=== PATIENT | male | born 1955 | race Caucasian/White ===

== ENCOUNTER 2017-09-29 09:40 | Emergency (ER) | payer OTHER ==
--- NOTE | 2017-09-29 10:17 | EDM.PDOC ---
ED HPI GENERAL MEDICAL PROBLEM - General Chief Complaint: Upper Extremity Injury/Pain Stated Complaint: CRUSHED IN TRAP SHOOTING MACHINE Time Seen by Provider: 09/29/17 10:00 Source of Information: Reports: Patient History Limitations: Reports: No Limitations - History of Present Illness INITIAL COMMENTS - FREE TEXT/NARRATIVE: Sonny is a 61 year old male who presents to the ED with c/o a injury to his left third finger. He reports they were working on a trap shooting machine and couldn't get it to work. He says all of a sudden it started to work and a lever came back and crushed his left third finger. He reports instant pain and a large amount of blood loss. He reports his finger his numb. He denies any pain. Bleeding is controlled with pressure to the area. Onset: Today, Sudden Onset Date: 09/29/17 Onset Time: 09:40 Duration: Constant Location: Reports: Upper Extremity, Left Improves with: Reports: Other (pressure) Associated Symptoms: Reports: No Other Symptoms - Related Data Allergies Allergy/AdvReac Type Severity Reaction Status Date / Time No Known Allergies Allergy Verified 09/29/17 09:47 Home Meds: Home Meds Citalopram [Citalopram HBr] 09/29/17 [History] Diclofenac Sodium 09/29/17 [History] Metoprolol Succinate 09/29/17 [History] Zolpidem [Ambien] 5 mg PO PRN 09/29/17 [History] atorvaSTATin [Lipitor] 09/29/17 [History] Past Medical History Cardiovascular History: Reports: High Cholesterol, Hypertension Social & Family History - Family History Family Medical History: Noncontributory - Tobacco Use Smoking Status *Q: Never Smoker - Recreational Drug Use Recreational Drug Use: No Review of Systems - Review of Systems Review Of Systems: ROS reveals no pertinent complaints other than HPI. ED EXAM, GENERAL - Physical Exam Exam: See Below Exam Limited By: No Limitations General Appearance: Alert, WD/WN, No Apparent Distress Peripheral Pulses: 2+: Radial (L) Extremities: Normal Range of Motion, Other (crush injury to left distal 3rd phalynx, no foreign objects, bleeding controlled with pressure dressing) Neurological: Alert, Oriented, CN II-XII Intact, Normal Cognition, Normal Gait, Normal Reflexes, No Motor/Sensory Deficits Psychiatric: Normal Affect, Normal Mood Skin Exam: Other (crush injury to 3rd left distal phalynx) ED TRAUMA EXTREMITY PROCEDURES - Laceration/Wound Repair Left Midline Distal Finger Lac/Wound Length In cm: 5 Appearance: Subcutaneous, Clean Distal NVT: Other (numb) Anesthetic Type: Digital Local Anesthesia - Lidocaine (Xylocaine): 1% Plain Local Anesthetic Volume: 5cc Skin Prep: Chlorhexidine (Hibiciens), Providone-Iodine (Betadine), Saline Saline Irrigation (cc's): 30 Exploration/Debridement/Repair: Wound Explored, Minimal Debridement Closed With: Sutures Suture Size: 4-0 # of Sutures: 12 Suture Type: Prolene Course - Vital Signs Last Recorded V/S: Last Vital Signs Temp 98 F 09/29/17 09:43 Pulse 66 09/29/17 09:43 Resp 18 09/29/17 09:43 BP 148/95 H 09/29/17 09:43 Pulse Ox 95 09/29/17 09:43 - Orders/Labs/Meds Meds: Medications Discontinued Medications Generic Name Dose Route Start Last Admin Trade Name Rey PRN Reason Stop Dose Admin Diphtheria/Tetanus/Acell Pertussis 0.5 ml 09/29/17 11:29 09/29/17 12:03 Adacel IM 09/29/17 11:30 0.5 ml .ONCE ONE Administration Lidocaine HCl Confirm 09/29/17 10:20 09/29/17 11:52 Xylocaine 1% Administered 09/29/17 10:21 20 ml Dose Administration 20 ml .ROUTE .STK-MED ONE Neomycin/Polymyxin/Bacitracin Confirm 09/29/17 12:00 09/29/17 12:17 Triple Antibiotic Oint Administered 09/29/17 12:01 1 each Dose Administration 1 each .ROUTE .STK-MED ONE Neomycin/Polymyxin/Bacitracin Confirm 09/29/17 12:00 09/29/17 12:17 Triple Antibiotic Oint Administered 09/29/17 12:01 Not Given Dose 1 each .ROUTE .STK-MED ONE Departure - Departure Time of Disposition: 12:29 Disposition: Home, Self-Care 01 Condition: Good Clinical Impression: Crushing injury of finger of left hand Fracture of distal phalanx of finger, open Qualifiers: Encounter type: initial encounter Finger: middle finger Fracture alignment: nondisplaced Laterality: left Qualified Code(s): S62.663B - Nondisplaced fracture of distal phalanx of left middle finger, initial encounter for open fracture Laceration of finger of left hand with damage to nail Qualifiers: Encounter type: initial encounter Finger: middle finger Foreign body presence: without foreign body Qualified Code(s): S61.313A - Laceration without foreign body of left middle finger with damage to nail, initial encounter - Discharge Information Instructions: Finger Fracture, [id number], Wound Care, Adult, Stitches, Vikash, or Adhesive Wound Closure, [id number] Referrals: PCP,None [Primary Care Provider] - Forms: ED Department Discharge Additional Instructions: Keep dressing on unless saturated. May remove after 48 hours. Keep bandaid in place to protect nailbed. Tylenol or ibuprofen for less severe pain Chambers for more severe pain Ice affected area for comfort Keep area clean and dry Follow up in clinic Sunday for suture removal and wound check
[2017-09-29] MEDS ORDERED: Lidocaine 1% 20 ML MDV ONE (10:20)
[2017-09-29] MEDS ORDERED: Diphtheria,Pertussis(Acell),Tetanus Vaccine 0.5 ML Syringe IM ONE (11:29)
[2017-09-29] MEDS ORDERED: Bacitracin/Neomycin/Polymyxin B Oint 0.9 GM U/D Packet ONE ×2 (12:00)
== END 2017-09-29 12:45 | disposition home or self-care (01) ==
LOC: CC.ED 09:40
DX: S67.193A Crushing injury of left middle finger, initial encounter (principal); S62.663B Nondisplaced fracture of distal phalanx of left middle finger, initial encounter for open fracture; E78.00 Pure hypercholesterolemia, unspecified; Z23 Encounter for immunization; I10 Essential (primary) hypertension; W23.1XXA Caught, crushed, jammed, or pinched between stationary objects, initial encounter
CPT/HCPCS: 12002; 73140-F2; 90471; 90715; 99283